=== PATIENT | female | born 1990 | race Caucasian/White ===

== ENCOUNTER 2023-03-08 22:32 | Observation (INO) | payer MEDICAID, OTHER ==
[~2023-03-08] VITALS: Ht 152.4 cm; Wt 72.6 kg
[2023-03-08] MEDS ORDERED: ACETAMINOPHEN 500MG TABLET PO NR (22:45)
[2023-03-08] MEDS ORDERED: FERR325T6 PO (23:59)
[2023-03-08] MEDS ORDERED: PNV1TABL50 PO (23:59)
== END 2023-03-09 00:20 | disposition left against medical advice (07) ==
LOC: 8 EST LDRP 22:32
PROVIDERS: ADMIT Specialist; ATTEND Specialist
DX: O26.892 Other specified pregnancy related conditions, second trimester (principal); R51.9 Headache, unspecified; Z3A.22 22 weeks gestation of pregnancy; W19.XXXA Unspecified fall, initial encounter; Y92.89 Other specified places as the place of occurrence of the external cause; Y93.89 Activity, other specified; Y99.8 Other external cause status
CPT/HCPCS: 59025; G0378; 99281; G0379